=== PATIENT | male | born 1955 | race Two or more races ===

== ENCOUNTER → 2017-04-06 | Outpatient (CLI) | payer BC ==
[~2017-04-06] MED LIST: AVAPRO PO; FISH OIL500 M2; LIPITOR PO; LISINOPRIL; LISINOPRIL20 MG PO; MERIPEX; MIRAPEX0.25 MG PO; MULTI-VITAMIN1 EAC1; NIASPAN750 MG; SIMVASTATIN20 MG PO; TUSSIONEX PENN473 ML PO; ZITHROMAX PO
--- NOTE | ~2017-04-06 | MR2 ---
[facility] A Service of [facility] & [facility] RADIOLOGY TEXT RESULTS PATIENT: PAL VELASQUEZ LOCATION: [facility] : 53 UNIT #: [id number] AGE: [address]: Josefina Mixon MD SEX: M ORDER DR: [id number] [facility] [address] [place], [place] [address] [id number] O MR#: [id number] Acc #: [id number] NAME: PAL VELASQUEZ : 1955 SEX: M STUDY DATE/TIME: 04/06/2017 17:40 UNIT: [facility] ROOM: STUDY DESCRIPTION: MR Abdomen WWo Cont Attending Physician: Josefina Mixon M.D. Referring Physician: Josefina Mixon M.D. Ordering Physician: Josefina Mixon M.D. Primary Care Physician: Sharon Goss M.D. MRI CENTER REPORT This report is preliminary unless electronic signature is present. EXAM MRI abdomen without and with contrast DATE 04/06/2017 HISTORY Right and left mid abdominal pain for the past 2 weeks. No known injury. History of hemochromatosis. Patient states found something in CT abdomen in 2015. Previous inguinal surgery. Additional history of hypertension, high cholesterol, restless legs. COMPARISON CT abdomen and pelvis with contrast 01/08/[address] abdomen and pelvis without and with contrast 08/19/2013. No previous MRI abdomen at this institution for comparison. PROCEDURE Multiplanar, multisequence imaging of the abdomen without and with contrast. Dynamic postcontrast imaging was obtained. 15 mL MultiHance contrast was administered intravenously for the exam. FINDINGS The liver fails to demonstrate the typical MRI characteristics of primary hemochromatosis. No appreciable signal hyperintensity on [id number] imaging or T2* susceptibility changes are identified. Additionally, there is no MRI evidence of cirrhosis. Spleen size is within normal limits. Pancreatic signal intensity is likewise unremarkable. The liver does not appear frankly cirrhotic, and no ascites is identified. There are no suspicious early enhancing or washout liver lesions to suggest malignancy. What appears to be a focus of transhepatic STS. [facility] A Service of [facility] & [facility] RADIOLOGY TEXT RESULTS PATIENT: PAL VELASQUEZ LOCATION: [facility] : 53 UNIT #: [id number] AGE: [address]: Josefina Mixon MD SEX: M ORDER DR: attenuation difference is demonstrated in the lateral left hepatic segment on the early arterial-phase imaging, which subsequently normalizes on other phases of imaging, and has a similar appearance to the 2015 and 2012 exams. What is thought to be a tiny flash-fill hemangioma measuring 7 mm is seen in the right hepatic lobe laterally, segment VII, normalizing to background parenchyma on more delayed phases. Major hepatic vasculature appears patent. Gallbladder, pancreas, adrenals and kidneys appear within normal limits. Visualized bowel appears unremarkable. No abnormal intrahepatic or extrahepatic biliary ductal dilation is seen. No pathologic adenopathy is identified. IMPRESSION 1. Essentially normal MRI of the abdomen without and with contrast. The liver fails to demonstrate the classic characteristics of hemochromatosis on this examination. Incidental findings of transhepatic attenuation defect in the left hepatic lobe and probable tiny flash-fill hemangioma in the right hepatic lobe. Dictated by... Elida Dinh M.D. THIS IS AN ELECTRONICALLY VERIFIED REPORT Elida Dinh M.D. at 04/08/2017 11:57 AM RICARDO/mario TD: 04/08/2017 00:51 JOB #: [id number] MRI CENTER REPORT Page 1 of 1 COPY
[2017-04-06 17:16] LABS: POC - CREATININE 0.97 mg/dL (0.64-1.27); POC - GFR >60.0 mL/min (>60)
== END | disposition home or self-care (01) ==
LOC: CMRI 15:49 → CCAT 16:40 → CMRI 17:00 → CCAT 17:00
PROVIDERS: Internal Medicine Hematology
DX: E83.118 Other hemochromatosis (principal)
CPT/HCPCS: 74183; 82565; A9577